=== PATIENT | female | born 1990 | race Caucasian/White ===

== ENCOUNTER 2023-10-01 13:22 | Inpatient (IN) | payer OTHER ==
[2023-10-01 14:09] VITALS: BMI 29.2
[2023-10-01] MEDS ORDERED: NALOXONE HCL (KLOXXADO) 8 MG SPRAY NS PRN (14:59)
[2023-10-01] MEDS ORDERED: ACETAMINOPHEN 325 MG TABLET (FP) PO PRN (14:59)
[2023-10-01] MEDS ORDERED: DICYCLOMINE HCL 10 MG CAPSULE PO PRN (14:59)
[2023-10-01] MEDS ORDERED: MAG HYDROX/AL HYDROX/SIMETH 30 ML UNIT-DOSE CUP PO PRN (14:59)
[2023-10-01] MEDS ORDERED: BISMUTH SUBSALICYLATE 524 MG/30 ML PO PRN (14:59)
[2023-10-01] MEDS ORDERED: POLYETHYLENE GLYCOL (HEALTHYLAX) 3350 17 GM PACKET PO PRN (14:59)
[2023-10-01] MEDS ORDERED: NALOXONE HCL 0.4 MG/ML VIAL IM PRN (14:59)
[2023-10-01] MEDS ORDERED: IBUPROFEN 400 MG TABLET (FP) PO PRN (14:59)
[2023-10-01] MEDS ORDERED: guaiFENesin 600 MG TABLET.ER (FP) PO PRN (14:59)
[2023-10-01] MEDS ORDERED: ONDANSETRON *ODT* 4 MG TABLET SL PRN (14:59)
[2023-10-01] MEDS ORDERED: IBUPROFEN 600 MG TABLET (FP) PO PRN (14:59)
[2023-10-01] MEDS ORDERED: LOPERAMIDE HCL 2 MG CAPSULE PO PRN (14:59)
[2023-10-01] MEDS ORDERED: MAGNESIUM HYDROX 2400MG/30ML ORAL SUSPENSION 30 ML CUP PO PRN (14:59)
[2023-10-01] MEDS ORDERED: BENZOCAINE/MENTHOL (CHLORASEPTIC ) LOZENGE MM PRN (14:59)
[2023-10-01] MEDS ORDERED: BENZONATATE 200 MG CAPSULE PO PRN (14:59)
[2023-10-01] MEDS: NICOTINE 14 MG/24 HOURS TOPICAL PATCH TD SCH (15:25)
[2023-10-01] MEDS: diazePAM 5 MG TABLET PO ONE (15:25)
[2023-10-01] MEDS: PRENATAL VITAMINS W/ FOLIC ACID TABLET (FP) PO SCH (15:25)
[2023-10-01] MEDS ORDERED: diazePAM 5 MG TABLET ONE (15:31)
[2023-10-01] MEDS ORDERED: NICOTINE 14 MG/24 HOURS TOPICAL PATCH TD ONE (15:31)
[2023-10-01] MEDS ORDERED: PRENATAL VITAMINS W/ FOLIC ACID TABLET (FP) PO ONE (15:31)
[2023-10-01] MEDS: diazePAM 5 MG TABLET PO SCH (16:46)
[2023-10-01] MEDS: diazePAM 5 MG TABLET PO PRN (20:40)
[2023-10-01] MEDS: METHOCARBAMOL 500 MG TABLET PO PRN (23:11)
[2023-10-01] MEDS: MELATONIN 5 MG TABLETS PO SCH (23:11)
[2023-10-01] MEDS: THIAMINE 100 MG TABLET PO SCH (23:12)
[2023-10-02 09:02] LABS: HEMOGLOBIN 13.8 GM/dL (10.7-15.3); MCH 32.8 pg (25.7-33.7); MCHC 33.6 g/dl (32.0-36.0); MEAN CELL VOLUME 97.5 fl (80-96); MEAN PLT VOLUME 8.3 fl (7.5-11.1); PLATELET COUNT 284 10^3/uL (134-434); RBC 4.21 M/mm3 (3.60-5.2); RDW 13.9 % (11.6-15.6); WHITE BLOOD COUNT 5.1 K/mm3 (4.0-10.0)
[2023-10-02 09:08] LABS: CHLORIDE 107 mmol/L (98-107); POTASSIUM 4.2 mmol/L (3.5-5.1); SODIUM 140 mmol/L (136-145)
[2023-10-02 09:17] LABS: ALBUMIN 3.2 g/dl (3.4-5.0); ANION GAP 8 mmol/L (4-13); BLOOD UREA NITROGEN 5.6 mg/dL (7-18); CALCIUM 9.8 mg/dL (8.5-10.1); CO2 24 mmol/L (21-32); GLUCOSE,RANDOM 102 mg/dL (74-106)
[2023-10-02 09:20] LABS: SGPT/ALT 46 U/L (13-61)
[2023-10-02 09:21] LABS: CREATININE 0.6 mg/dL (0.55-1.3); SGOT/AST 32 U/L (15-37)
[2023-10-02 09:22] LABS: BILIRUBIN,TOTAL 0.6 mg/dL (0.2-1); TOT PROT 6.9 g/dl (6.4-8.2)
[2023-10-02 09:23] LABS: ALK PHOS 82 U/L (45-117)
[2023-10-02] MEDS ORDERED: GABAPENTIN 300 MG CAPSULE PO SCH (10:00)
[2023-10-02] MEDS: ESCITALOPRAM OXALATE 20 MG TABLET PO SCH (10:05)
[2023-10-02] MEDS: ARIPiprazole 15 MG TABLET PO SCH (10:06)
[2023-10-02] MEDS: BENZTROPINE MESYLATE 1 MG TABLET PO SCH (10:50)
[2023-10-02] MEDS: BACITRACIN 0.9 GM PACKET TP SCH (10:50)
[2023-10-02] MEDS: GABAPENTIN 300 MG CAPSULE PO ONE (10:50)
[2023-10-02] MEDS: FLU VACCINE (FLULAVAL) PF 60 MCG/0.5 ML SYRINGE 2023-2024 IM ONE (12:14)
[2023-10-02] MEDS: GABAPENTIN 300 MG CAPSULE PO SCH (13:40)
[2023-10-02] MEDS: hydrOXYzine PAMOATE 25 MG CAPSULE (FP) PO PRN (16:48)
[2023-10-02] MEDS: LACTULOSE 20 GM/30 ML UDC (FOR ORAL USE ONLY) PO SCH (17:32)
[2023-10-03] MEDS: diazePAM 5 MG TABLET PO SCH (05:21)
[2023-10-03] MEDS ORDERED: ESCITALOPRAM OXALATE 10 MG TABLET ONE (09:01)
[2023-10-03] MEDS ORDERED: chlordiazePOXIDE HCL 25 MG CAPSULE PO PRN (15:35)
[2023-10-03] MEDS: chlordiazePOXIDE HCL 10 MG CAPSULE PO SCH (17:04)
[2023-10-03] MEDS: cloNIDine HCL 0.1 MG TABLET PO PRN (17:05)
[2023-10-03] MEDS: SUVOREXANT 10 MG TABLET PO PRN (22:28)
[2023-10-04] MEDS: chlordiazePOXIDE HCL 10 MG CAPSULE PO SCH (05:32)
[2023-10-04] MEDS ORDERED: diazePAM 5 MG TABLET PO SCH (06:00)
[2023-10-04 06:17] VITALS: RESP 16
[2023-10-04 09:16] VITALS: BP 115/64; PULSE 70; TEMP 97.3
[2023-10-04] MEDS ORDERED: ESCITALOPRAM OXALATE 10 MG TABLET ONE (09:26)
[2023-10-05] MEDS ORDERED: chlordiazePOXIDE HCL 10 MG CAPSULE PO PRN
[2023-10-05] MEDS ORDERED: chlordiazePOXIDE HCL 10 MG CAPSULE PO ONE (05:00)
[2023-10-05] MEDS ORDERED: diazePAM 5 MG TABLET PO ONE (06:00)
== END 2023-10-04 12:04 | disposition home or self-care (01) | DRG 775 ==
LOC: YASAS 13:22 → Y6N 15:39
PROVIDERS: ADMIT Allergy & Immunology; ATTEND Surgery
PROC: HZ2ZZZZ Detoxification Services for Substance Abuse Treatment (ICD-10-PCS; principal; 2023-10-01)
DX: F10.230 Alcohol dependence with withdrawal, uncomplicated (principal); F12.20 Cannabis dependence, uncomplicated; F17.210 Nicotine dependence, cigarettes, uncomplicated; F31.81 Bipolar II disorder; F60.3 Borderline personality disorder; G47.00 Insomnia, unspecified
CPT/HCPCS: 36415; 80053; 80307; 81025; 82140; 85027; 86780; 87811; 90686; 93005; 93010; G0008

== ENCOUNTER 2024-01-02 13:54 | Inpatient (IN) | payer OTHER ==
[2024-01-02 15:10] VITALS: BMI 29.7
[2024-01-02] MEDS ORDERED: BENZOCAINE/MENTHOL (CHLORASEPTIC ) LOZENGE MM PRN (20:21)
[2024-01-02] MEDS ORDERED: BISMUTH SUBSALICYLATE 524 MG/30 ML PO PRN (20:21)
[2024-01-02] MEDS ORDERED: MAG HYDROX/AL HYDROX/SIMETH 30 ML UNIT-DOSE CUP PO PRN (20:21)
[2024-01-02] MEDS ORDERED: NALOXONE (NARCAN) HCL 4 MG/0.1 ML SPRAY NS PRN (20:21)
[2024-01-02] MEDS ORDERED: guaiFENesin 600 MG TABLET.ER (FP) PO PRN (20:21)
[2024-01-02] MEDS ORDERED: MAGNESIUM HYDROX 2400MG/30ML ORAL SUSPENSION 30 ML CUP PO PRN (20:21)
[2024-01-02] MEDS ORDERED: POLYETHYLENE GLYCOL (HEALTHYLAX) 3350 17 GM PACKET PO PRN (20:21)
[2024-01-02] MEDS ORDERED: ONDANSETRON *ODT* 4 MG TABLET SL PRN (20:21)
[2024-01-02] MEDS ORDERED: ACETAMINOPHEN 325 MG TABLET (FP) PO PRN (20:21)
[2024-01-02] MEDS ORDERED: LOPERAMIDE HCL 2 MG CAPSULE PO PRN (20:21)
[2024-01-02] MEDS ORDERED: NICOTINE POLACRILEX 4 MG GUM BUC PRN (20:21)
[2024-01-02] MEDS ORDERED: NALOXONE HCL 0.4 MG/ML VIAL IM PRN (20:21)
[2024-01-02] MEDS ORDERED: IBUPROFEN 400 MG TABLET (FP) PO PRN (20:21)
[2024-01-02] MEDS ORDERED: BENZONATATE 200 MG CAPSULE PO PRN (20:21)
[2024-01-02] MEDS: MELATONIN 5 MG TABLETS PO SCH (21:59)
[2024-01-02] MEDS: hydrOXYzine PAMOATE 25 MG CAPSULE (FP) PO PRN (21:59)
[2024-01-02] MEDS: THIAMINE 100 MG TABLET PO SCH (21:59)
[2024-01-03] MEDS ORDERED: ESCITALOPRAM OXALATE 10 MG TABLET ONE (09:02)
[2024-01-03] MEDS: PRENATAL VITAMINS W/ FOLIC ACID TABLET (FP) PO SCH (09:04)
[2024-01-03] MEDS: ESCITALOPRAM OXALATE 20 MG TABLET PO SCH (09:04)
[2024-01-03] MEDS: NICOTINE 21 MG/24 HOURS TOPICAL PATCH TD SCH (09:04)
[2024-01-03] MEDS: ARIPiprazole 15 MG TABLET PO SCH (09:04)
[2024-01-03] MEDS ORDERED: chlordiazePOXIDE HCL 25 MG CAPSULE PO PRN (10:55)
[2024-01-03] MEDS: chlordiazePOXIDE HCL 25 MG CAPSULE PO SCH (11:18)
[2024-01-03] MEDS: IBUPROFEN 600 MG TABLET (FP) PO PRN (11:18)
[2024-01-03 12:50] LABS: HEMATOCRIT 40.6 % (32.4-45.2); MCH 32.6 pg (25.7-33.7); MCHC 34.3 g/dl (32.0-36.0); MEAN CELL VOLUME 95.1 fl (80-96); MEAN PLT VOLUME 8.5 fl (7.5-11.1); PLATELET COUNT 310 10^3/uL (134-434); RBC 4.28 M/mm3 (3.60-5.2); RDW 14.4 % (11.6-15.6); WHITE BLOOD COUNT 6.8 K/mm3 (4.0-10.0)
[2024-01-03 12:55] LABS: CHLORIDE 106 mmol/L (98-107); SODIUM 137 mmol/L (136-145)
[2024-01-03 13:07] LABS: BLOOD UREA NITROGEN 6.7 mg/dL (7-18); CALCIUM 8.7 mg/dL (8.5-10.1); GLUCOSE,RANDOM 106 mg/dL (74-106)
[2024-01-03 13:08] LABS: ALBUMIN 3.5 g/dl (3.4-5.0); ANION GAP 7 mmol/L (4-13); CO2 23 mmol/L (21-32)
[2024-01-03 13:10] LABS: CREATININE 0.7 mg/dL (0.55-1.3); SGOT/AST 20 U/L (15-37); SGPT/ALT 29 U/L (13-61)
[2024-01-03 13:12] LABS: TOT PROT 7.3 g/dl (6.4-8.2)
[2024-01-03 13:13] LABS: ALK PHOS 81 U/L (45-117)
[2024-01-03] MEDS: hydrOXYzine PAMOATE 50 MG CAPSULE (FP) PO ONE (15:54)
[2024-01-04] MEDS ORDERED: ESCITALOPRAM OXALATE 10 MG TABLET ONE (10:18)
[2024-01-04] MEDS: hydrOXYzine PAMOATE 50 MG CAPSULE (FP) PO PRN (21:42)
[2024-01-04] MEDS: hydrOXYzine PAMOATE 50 MG CAPSULE (FP) PO ONE (23:41)
[2024-01-05] MEDS: DICYCLOMINE HCL 10 MG CAPSULE PO PRN (00:30)
[2024-01-05] MEDS ORDERED: chlordiazePOXIDE HCL 25 MG CAPSULE PO SCH (05:00)
[2024-01-05] MEDS: chlordiazePOXIDE HCL 25 MG CAPSULE PO SCH (05:58)
[2024-01-05] MEDS ORDERED: ESCITALOPRAM OXALATE 10 MG TABLET ONE (10:01)
[2024-01-05] MEDS: hydrOXYzine PAMOATE 50 MG CAPSULE (FP) PO PRN (14:09)
[2024-01-05] MEDS: chlordiazePOXIDE HCL 25 MG CAPSULE PO PRN (19:48)
[2024-01-05] MEDS: GABAPENTIN 300 MG CAPSULE PO PRN (20:00)
[2024-01-05 21:07] VITALS: BP 116/62; PULSE 61; RESP 16; TEMP 97.3
[2024-01-06] MEDS ORDERED: chlordiazePOXIDE HCL 10 MG CAPSULE PO PRN ×2
[2024-01-06] MEDS ORDERED: chlordiazePOXIDE HCL 10 MG CAPSULE PO SCH (05:00)
[2024-01-06] MEDS: chlordiazePOXIDE HCL 10 MG CAPSULE PO SCH (05:16)
[2024-01-07] MEDS ORDERED: chlordiazePOXIDE HCL 10 MG CAPSULE PO SCH ×2 (05:00)
[2024-01-08] MEDS ORDERED: chlordiazePOXIDE HCL 10 MG CAPSULE PO ONE ×2 (05:00)
== END 2024-01-06 10:59 | disposition left against medical advice (07) | DRG 770 ==
LOC: YASAS 13:54 → Y6N 21:04
PROVIDERS: ADMIT Allergy & Immunology; ATTEND Psychiatry & Neurology Pain Medicine
PROC: HZ2ZZZZ Detoxification Services for Substance Abuse Treatment (ICD-10-PCS; principal; 2024-01-02)
DX: F10.230 Alcohol dependence with withdrawal, uncomplicated (principal); F12.10 Cannabis abuse, uncomplicated; F17.210 Nicotine dependence, cigarettes, uncomplicated; F10.280 Alcohol dependence with alcohol-induced anxiety disorder; F10.282 Alcohol dependence with alcohol-induced sleep disorder; F10.24 Alcohol dependence with alcohol-induced mood disorder; F31.81 Bipolar II disorder; F60.3 Borderline personality disorder; Z91.51 Personal history of suicidal behavior; F91.8 Other conduct disorders; Z91.199 Patient's noncompliance with other medical treatment and regimen due to unspecified reason
CPT/HCPCS: 36415; 80053; 80305; 80307; 81025; 85027; 86780